=== PATIENT | female | born 1995 ===

== ENCOUNTER 2022-03-06 08:15 | Inpatient (IN) | payer OTHER ==
[~2022-03-06] VITALS: Ht 162.6 cm; Wt 117.5 kg
[2022-03-08] MEDS ORDERED: VITATRUE COMBO1 EACH PO (06:12)
[2022-03-08] MEDS ORDERED: FOLIC ACID20 MG PO (06:13)
== END 2022-03-10 15:53 | disposition home or self-care (01) | DRG 785 ==
LOC: OB/GYN 03-08 05:40 → O/R 03-08 05:40 → OB/GYN 03-08 07:00 → O/R 03-08 09:33 → OB/GYN 03-08 13:35
PROVIDERS: ADMIT Obstetrics & Gynecology; ATTEND Obstetrics & Gynecology
PROC: 0UB70ZZ Excision of Bilateral Fallopian Tubes, Open Approach (ICD-10-PCS; 2022-03-08)
PROC: 4A1HXCZ Monitoring of Products of Conception, Cardiac Rate, External Approach (ICD-10-PCS; 2022-03-08)
PROC: 10D00Z1 Extraction of Products of Conception, Low, Open Approach (ICD-10-PCS; principal; 2022-03-08 07:00)
DX: O34.211 Maternal care for low transverse scar from previous cesarean delivery (principal); Z3A.39 39 weeks gestation of pregnancy; Z37.0 Single live birth; Z30.2 Encounter for sterilization; Z20.822 Contact with and (suspected) exposure to COVID-19